=== PATIENT | female | born 1950 | race Caucasian/White ===

== ENCOUNTER → 2016-07-23 18:58 | Outpatient (CLI) | payer MEDICARE | END | disposition home or self-care (01) | LOC: D.MAMMO 06-04 15:15 | DX: Z12.31 Encounter for screening mammogram for malignant neoplasm of breast (principal) ==

== ENCOUNTER 2016-08-22 09:16 | Outpatient (CLI) | payer MEDICARE | END 2016-08-22 11:24 | LOC: D.MAMMO 09:16 | DX: R92.8 Other abnormal and inconclusive findings on diagnostic imaging of breast (principal) ==